=== PATIENT | male | born 1990 | race Hispanic/Latino ===

== ENCOUNTER → 2020-09-30 | Outpatient (CLI) | payer MEDICAID ==
[~2020-09-30] VITALS: Ht 22.9 cm; Wt 118.7 kg
== END | disposition home or self-care (01) ==
LOC: DTH 10:39
PROVIDERS: ATTEND Surgery
DX: E66.01 Morbid (severe) obesity due to excess calories (principal); E11.9 Type 2 diabetes mellitus without complications
CPT/HCPCS: 97802

== ENCOUNTER → 2020-11-11 | Outpatient (CLI) | payer MEDICAID | END | disposition home or self-care (01) | LOC: DTH 10:47 | PROVIDERS: ATTEND Surgery | DX: E11.9 Type 2 diabetes mellitus without complications (principal); E66.09 Other obesity due to excess calories | CPT/HCPCS: 97803 ==

== ENCOUNTER → 2020-12-15 | Outpatient (CLI) | payer MEDICAID | END | disposition home or self-care (01) | LOC: DTH 10:46 | PROVIDERS: ATTEND Surgery | DX: E66.01 Morbid (severe) obesity due to excess calories (principal); E11.9 Type 2 diabetes mellitus without complications | CPT/HCPCS: 97803 ==